=== PATIENT | male | born 1960 | race Caucasian/White ===

== ENCOUNTER 2016-10-02 06:44 | Day surgery (SDC) ==
[2016-10-02] MEDS ORDERED: LIDOCAINE 1% 20 ML MDV ONE (07:17)
[2016-10-02] MEDS ORDERED: LIDOCAINE 1% 20 ML MDV ID ONE (07:17)
[2016-10-02] MEDS ORDERED: VERSED ONE (08:40)
[2016-10-02] MEDS ORDERED: DIPRIVAN 20 ML VIAL IVP ONE (08:40)
[2016-10-02 09:49] VITALS: BP 111/76; TEMP 97.4
--- NOTE | 2016-10-02 15:35 | OP ---
INDICATIONS FOR PROCEDURE: 56 year old gentleman presents for a screening coloscopy. MEDICATIONS: SEE ANESTHESIA NOTES. PROCEDURE: COLONOSCOPY AND SNARE POLYPECTOMY. REPORT: The risks, benefits, alternatives and limitations were discussed in detail with the patient. Informed consent was obtained. After adequate sedation was achieved, a digital rectal exam revealed good tone, no masses. The colonoscope was introduced into the rectum and advanced under direct visual guidance to the cecum. The cecum was identified by the appendiceal orifice and IC valve. The cecum there is two polyps one about 4mm size and the one about 6-7mm size sessile,both were removed by snare technique. The proximal ascending colon there is a 4-5mm sessile polyp that I removed by snare technique. I then slowly withdrew the scope in a circumferential manner and the examined the mucosa quite carefully. I looked on the proximal and distal side of the folds and flexures as best as possible. Inserted retroflex scope in the right colon and the left colon to increase visualization. The colonic mucosa is unremarkable all the way down to the distal sigmoid here there is a 5-6mm benign appearing polyp that I removed by snare technique. No other abnormalities were noted. On retroflex view of the anal canal there was a small internal hemorrhoid. The prep was good and the withdraw time was 9 minute and 34 seconds. The patient tolerated the procedure well with stable vital signs and pulse oximetry throughout. IMPRESSION: 1. Four small polyps removed 2. Small internal hemorrhoid RECOMMENDATIONS: 1. High fiber diet 2. Office visit as needed 3. Await polyp pathology. 4. If there is abnormal changes I recommend repeat colonoscopy examination in three years otherwise should have this examination again in 5 years. Sooner if there was any signs or symptoms to indicate otherwise. CC: Dr. Sherri KENNEDY
== END 2016-10-02 10:00 | disposition home or self-care (01) ==
LOC: SURG 06:44
PROVIDERS: ATTEND Internal Medicine Gastroenterology
DX: Z12.11 Encounter for screening for malignant neoplasm of colon (principal); D12.0 Benign neoplasm of cecum; D12.2 Benign neoplasm of ascending colon; D12.5 Benign neoplasm of sigmoid colon; K64.8 Other hemorrhoids

== ENCOUNTER 2016-10-03 13:03 | Outpatient (CLI) | payer OTHER ==
[2016-10-03 13:33] LABS: BASOPHILS # (AUTO) 0.1 K/uL (0-0.2); BASOPHILS % (AUTO) 0.7 % (0.0-3.0); EOSINOPHILS # (AUTO) 0.2 K/ul (0.0-0.7); EOSINOPHILS % (AUTO) 2.9 % (0.0-7.0); HEMATOCRIT 46.8 % (42.0-52.0); HEMOGLOBIN 15.9 g/dl (14.0-18.0); LYMPHOCYTES # (AUTO) 2.6 K/uL (0.60-3.4); LYMPHOCYTES % (AUTO) 35.8 (10.0-50.0); MEAN CORPUSCULAR HEMOGLOBIN 28.5 pg (27.0-31.0); MEAN CORPUSCULAR VOLUME 83.9 fl (80.0-94.0); MONOCYTES # (AUTO) 0.7 K/uL (0.4-2.0); MONOCYTES % (AUTO) 9.2 (0-10); NEUTROPHILS # (AUTO) 3.7 K/ul (2.0-6.9); NEUTROPHILS % (AUTO) 51.4; PLATELET COUNT 282 10^3/uL (140-440); RED BLOOD COUNT 5.58 10^6/ul (4.70-6.10); WHITE BLOOD COUNT 7.18 K/ul (4.2-10.2)
[2016-10-03 13:37] LABS: BILIRUBIN,URINE Negative (NEGATIVE); KETONES,URINE Negative (NEGATIVE); LEUKOCYTE ESTERASE ,URINE Negative (NEGATIVE); NITRITE,URINE Negative (NEGATIVE); PROTEIN,URINE Negative (NEGATIVE); URINE, BLOOD Trace-intact (NEGATIVE)
[2016-10-03 13:50] LABS: ADD URINE MICROSCOPIC YES
[2016-10-03 13:51] LABS: BACTERIA,URINE TRACE (NOT PRESENT)
[2016-10-03 13:54] LABS: ALBUMIN 4.3 g/dL (3.4-5.0); ALBUMIN/GLOBULIN RATIO 1.13; ANION GAP 11.1; BILIRUBIN,TOTAL 0.62 mg/dL (0.00-1.20); BUN/CREATININE RATIO 15.17; CHOL/HDL RATIO 5.3 (4.5-6.4); CREATININE 1.12 mg/dL (0.60-1.10); POTASSIUM 4.1 mmol/L (3.5-5.1); TOTAL PROTEIN 8.1 g/dL (6.4-8.2)
== END 2016-10-03 13:04 | disposition home or self-care (01) ==
LOC: LAB 13:03
PROVIDERS: ATTEND General Practice
DX: M54.5 Low back pain (principal); R10.9 Unspecified abdominal pain; N40.0 Benign prostatic hyperplasia without lower urinary tract symptoms; R74.8 Abnormal levels of other serum enzymes; G47.00 Insomnia, unspecified; K92.1 Melena
CPT/HCPCS: 36415; 80053; 80061; 81001; 85025

== ENCOUNTER 2017-02-20 14:38 | Outpatient (CLI) ==
--- NOTE | 2017-02-20 15:02 | CT ---
EXAM: CT of the head without contrast History: Dizziness Comparison: Head CT 05/14/2012 Technique: Multiplanar CT images through the head were obtained without the administration of IV co ntrast Findings: The visualized paranasal sinuses and mastoid air cells are clear in general. No acute ca lvarial abnormalities. Intracranially the ventricular and cisternal spaces are normal in size, shape and configuration for a patient of this age. No dominant mass or the line shift. No hydrocephalous. No acute intracrani al hemorrhage or abnormal extraaxial fluid collections. Impression: No acute intracranial process. No change compared to the prior study.
== END 2017-02-20 14:39 | disposition home or self-care (01) ==
LOC: RAD 14:38
PROVIDERS: ATTEND General Practice
DX: R42 Dizziness and giddiness (principal)

== ENCOUNTER 2017-05-21 13:02 | Outpatient (CLI) ==
[2017-05-21 13:14] LABS: BASOPHILS # (AUTO) 0.1 K/uL (0-0.2); BASOPHILS % (AUTO) 1.2 % (0.0-3.0); EOSINOPHILS # (AUTO) 0.2 K/ul (0.0-0.7); EOSINOPHILS % (AUTO) 4.4 % (0.0-7.0); HEMATOCRIT 43.5 % (42.0-52.0); IMMATURE GRANULOCYTE % (AUTO) 0.2 % (0.0-5.0); LYMPHOCYTES # (AUTO) 1.5 K/uL (0.60-3.4); LYMPHOCYTES % (AUTO) 34.6 (10.0-50.0); MEAN CORPUSCULAR HEMOGLOBIN 28.7 pg (27.0-31.0); MEAN CORPUSCULAR HGB CONC 34.5 (31.8-35.4); MEAN CORPUSCULAR VOLUME 83.2 fl (80.0-94.0); MONOCYTES # (AUTO) 0.4 K/uL (0.4-2.0); MONOCYTES % (AUTO) 8.5 (0-10); NEUTROPHILS # (AUTO) 2.2 K/ul (2.0-6.9); NEUTROPHILS % (AUTO) 51.1; PLATELET COUNT 218 10^3/uL (140-440); RED BLOOD COUNT 5.23 10^6/ul (4.70-6.10); WHITE BLOOD COUNT 4.34 K/ul (4.2-10.2)
[2017-05-21 13:20] LABS: BILIRUBIN,URINE Negative (NEGATIVE); KETONES,URINE Negative (NEGATIVE); LEUKOCYTE ESTERASE ,URINE Negative (NEGATIVE); NITRITE,URINE Negative (NEGATIVE); PROTEIN,URINE Negative (NEGATIVE); URINE, BLOOD Negative (NEGATIVE)
[2017-05-21 13:25] LABS: ADD URINE MICROSCOPIC NO; ALBUMIN 3.8 g/dL (3.4-5.0); ALBUMIN/GLOBULIN RATIO 1.12; ANION GAP 13.5; BILIRUBIN,TOTAL 0.75 mg/dL (0.00-1.20); BUN/CREATININE RATIO 12.37; CALCIUM 9.7 mg/dL (8.2-10.2); CHOL/HDL RATIO 5.1 (4.5-6.4); CREATININE 0.97 mg/dL (0.60-1.10); POTASSIUM 4.5 mmol/L (3.5-5.1); TOTAL PROTEIN 7.2 g/dL (6.4-8.2)
== END 2017-05-21 13:03 | disposition home or self-care (01) ==
LOC: LAB 13:02
PROVIDERS: ATTEND General Practice
DX: R42 Dizziness and giddiness (principal); Z79.899 Other long term (current) drug therapy; Z12.5 Encounter for screening for malignant neoplasm of prostate; N40.0 Benign prostatic hyperplasia without lower urinary tract symptoms; M54.5 Low back pain; G47.00 Insomnia, unspecified
CPT/HCPCS: 36415; 80053; 80061; 81001; 85025

== ENCOUNTER 2017-08-27 13:52 | Outpatient (CLI) | END 2017-08-27 13:53 | disposition home or self-care (01) | LOC: LAB 13:52 | PROVIDERS: ATTEND General Practice | DX: R05 Cough (principal); J02.9 Acute pharyngitis, unspecified | CPT/HCPCS: 87502; 87651 ==

== ENCOUNTER 2017-09-26 13:53 | Outpatient (CLI) | END 2017-09-26 13:54 | disposition home or self-care (01) | LOC: FCC-LAB 13:53 | PROVIDERS: ATTEND General Practice | DX: R05 Cough (principal); J39.2 Other diseases of pharynx | CPT/HCPCS: 87651; 87804 ==

== ENCOUNTER 2017-12-20 11:36 | Outpatient (CLI) | END 2017-12-20 11:37 | disposition home or self-care (01) | LOC: FCC-LAB 11:36 | PROVIDERS: ATTEND General Practice | DX: Z79.899 Other long term (current) drug therapy (principal) | CPT/HCPCS: 36415; 80053; 80061; 81001; 85025 ==

== ENCOUNTER 2018-02-28 09:28 | Outpatient (CLI) ==
--- NOTE | 2018-02-28 10:29 | CT ---
EXAM: CT of the head without contrast History: Diplopia Comparison: Head CT 02/20/2017 Technique: Multiplanar CT images through the head were obtained without the administration of IV con trast Findings: Partially visualized mucous retention cysts or polyps within the bilateral maxillary sinus es. No air-fluid levels seen within the sinuses. Mastoid air cells are generally clear. No acute c alvarial abnormalities. Intracranially the ventricular and cisternal spaces are normal in size, shape and configuration for a patient of this age. No dominant mass or midline shift. No hydrocephalous. No acute intracranial hemorrhage or abnormal extraaxial fluid collections. No significant interval change in the periventri cular and subcortical white matter hypodensities. Impression: 1. No acute intracranial hemorrhage. 2. Chronic small vessel ischemic disease. 3. Mild sinus disease. 4. If symptoms persist, recommend further evaluation with brain MRI.
== END 2018-02-28 09:29 | disposition home or self-care (01) ==
LOC: RAD 09:28
PROVIDERS: ATTEND General Practice
DX: H53.2 Diplopia (principal)

== ENCOUNTER 2018-04-08 09:54 | Outpatient (CLI) | END 2018-04-08 09:55 | disposition home or self-care (01) | LOC: FCC-LAB 09:54 | PROVIDERS: ATTEND General Practice | DX: E83.52 Hypercalcemia (principal); Z79.899 Other long term (current) drug therapy | CPT/HCPCS: 36415; 80053 ==

== ENCOUNTER 2018-12-17 10:44 | Outpatient (CLI) | END 2018-12-17 10:45 | disposition home or self-care (01) | LOC: RHC-LAB 10:44 | PROVIDERS: ATTEND General Practice | DX: R07.89 Other chest pain (principal); M54.5 Low back pain; G47.00 Insomnia, unspecified; E78.5 Hyperlipidemia, unspecified; Z12.5 Encounter for screening for malignant neoplasm of prostate; Z79.899 Other long term (current) drug therapy | CPT/HCPCS: 36415; 80053; 80061; 81001; 84443; 85025 ==

== ENCOUNTER 2018-12-24 09:27 | Outpatient (CLI) | payer OTHER ==
--- NOTE | 2018-12-24 10:29 | US ---
EXAM: ULTRASOUND ABDOMEN LIMITED HISTORY: Abnormal levels of serum enzymes FINDINGS: Ultrasound abdomen, limited. Ivan-scale ultrasound and color Doppler was performed. Live r size was measured at 15.3 cm which is within normal limits. Liver parenchyma demonstrates diffuse increased sound attenuation which can be consistent with steatosis. No focal hepatic lesion or evide nce of intrahepatic biliary dilatation was identified. The main portal vein is patent and hepatopeda l. No gallstones or gallbladder sludge identified. Gallbladder wall thickness was within normal limits at 0.27 cm. The common bile duct diameter was within normal limits at 0.3 cm. No ascites identified . The pancreas was poorly seen. IMPRESSION: 1. Suggestion of fatty liver. 2. No gallbladder pathology. Normal common bile duct diameter. 3. Pancreas was poorly seen.
== END 2018-12-24 09:28 | disposition home or self-care (01) ==
LOC: RAD 09:27
PROVIDERS: ATTEND General Practice
DX: R74.8 Abnormal levels of other serum enzymes (principal); R94.5 Abnormal results of liver function studies
CPT/HCPCS: 36415; 80074